=== PATIENT | female | born 1995 | race African-American/Black ===

== ENCOUNTER 2025-01-16 22:25 | Emergency (ER) | payer MEDICAID ==
[~2025-01-16] VITALS: Ht 152.4 cm; Wt 51.0 kg
[2025-01-16 22:27] VITALS: O2SAT 96
[2025-01-16 22:35] VITALS: BP 133/98; PULSE 108; RESP 18; TEMP 37; O2SAT 100
[2025-01-16] MEDS: IBUPROFEN 600MG TABLET PO ONE (23:21)
[2025-01-16 23:28] LABS: BASOPHILS % 0.4 % (0.0-2.0); EOSINOPHILS % 1.5 % (0.0-5.0); HEMATOCRIT. 37.8 % (36.0-48.0); HEMOGLOBIN. 12.6 g/dL (12.0-16.0); LYMPHOCYTES % 22.9 % (20.0-50.0); MEAN PLATELET VOLUME 8.4 fl (7.4-10.4); MONOCYTES % 7.1 % (2.0-8.0); NEUTROPHILS % 68.1 % (40.0-76.0); PLATELET 232 x1000/uL (130-400); RED BLOOD CELL COUNT 4.10 mill/uL (4.2-5.4); RED CELL DISTRIBUTION WIDTH 12.4 % (11.6-14.6)
[2025-01-16 23:42] LABS: CREATININE 1.0 mg/dL (0.6-1.0); UREA NITROGEN BLOOD 7 mg/dL (9-23)
[2025-01-16 23:44] LABS: ASPARTATE AMINOTRANSFERASE 20 IU/L (<34); BILIRUBIN DIRECT 0.1 mg/dL (<=3.0); BILIRUBIN TOTAL 0.5 mg/dL (0.1-1.0)
[2025-01-16 23:45] LABS: PROTEIN TOTAL 6.6 g/dL (6.0-8.3)
== END 2025-01-17 01:45 | disposition home or self-care (01) ==
LOC: ER 22:25
DX: R10.12 Left upper quadrant pain (principal); R19.7 Diarrhea, unspecified; Z98.890 Other specified postprocedural states
CPT/HCPCS: 36415; 80048; 80076; 85025; 99283

== ENCOUNTER 2025-01-29 19:11 | Emergency (ER) | payer MEDICAID ==
[~2025-01-29] VITALS: Ht 154.9 cm; Wt 57.0 kg
[2025-01-29 20:02] VITALS: O2SAT 98
[2025-01-29] MEDS: DEXAMETHASONE 1 MG/ML ORAL SYR PO ONE (21:45)
[2025-01-29] MEDS: SODIUM CHLORIDE 0.9% (SEPSIS BOLUS) IV ONE (22:56)
[2025-01-29] MEDS: KETOROLAC 15MG/ML VIAL IV ONE (22:56)
[2025-01-29] MEDS: DEXAMETHASONE 4MG TABLET PO SCH (22:57)
[2025-01-29] MEDS: VISCOUS LIDOCAINE 2% 15 ML UDC MM ONE (22:57)
[2025-01-29] MEDS: PIPERACILLIN/TAZO 3.375G/50ML 50 ML IV ONE (23:06)
[2025-01-29 23:13] LABS: HEMATOCRIT. 42.3 % (36.0-48.0); HEMOGLOBIN. 14.3 g/dL (12.0-16.0); MEAN PLATELET VOLUME 9.2 fl (7.4-10.4); PLATELET 222 x1000/uL (130-400); RED BLOOD CELL COUNT 4.71 mill/uL (4.2-5.4); RED CELL DISTRIBUTION WIDTH 12.5 % (11.6-14.6)
[2025-01-29 23:22] LABS: INR 1.0
[2025-01-29 23:24] LABS: HCG SCREEN NEGATIVE; LYMPHOCYTES % MANUAL 3.0 % (20.0-60.0); MONOCYTES % MANUAL 4.0 % (2.0-8.0); NEUTROPHILS % MANUAL 93.0 % (45.0-75.0); PLATELET ESTIMATE NORMAL
[2025-01-29 23:26] LABS: CREATININE 0.9 mg/dL (0.6-1.0); UREA NITROGEN BLOOD 8 mg/dL (9-23)
[2025-01-29 23:27] LABS: TROPONIN I HIGH SENSITIVITY < 4 ng/L (3.0-34)
[2025-01-29 23:28] LABS: ASPARTATE AMINOTRANSFERASE 19 IU/L (<34); BILIRUBIN DIRECT 0.2 mg/dL (<=3.0); BILIRUBIN TOTAL 0.8 mg/dL (0.1-1.0); PROTEIN TOTAL 8.2 g/dL (6.0-8.3)
[2025-01-29 23:30] LABS: CLARITY URINE CLOUDY (CLEAR); COLOR URINE YELLOW (YELLOW); GLUCOSE URINE NEGATIVE (NEGATIVE); KETONES URINE NEGATIVE (NEGATIVE); LEUKOCYTE ESTERASE URINE 2+ (NEGATIVE); NITRITE URINE NEGATIVE (NEGATIVE); OCCULT BLOOD URINE 1+ (NEGATIVE); PH URINE 5.5 (4.5-8.0); PROTEIN URINE TRACE (NEGATIVE); SPECIFIC GRAVITY URINE 1.014 (1.005-1.030); UROBILINOGEN URINE 2.0 E.U./dL (0.2-1.0)
[2025-01-29] MEDS: VANCOMYCIN 1G PREMIX 200 ML IV ONE (23:34)
[2025-01-30 00:01] LABS: SQUAMOUS EPITHELIAL CELL URINE 3+ /lpf (RARE/1+)
[2025-01-30 00:06] LABS: BACTERIA URINE 3+; RBC URINE 0-2 /hpf (0-2)
[2025-01-30 04:10] VITALS: BP 97/59; PULSE 96; RESP 17; TEMP 36.6; O2SAT 99
[2025-01-30 07:09] LABS: INFLUENZA TYPE A Presumptive Negative (Pres. Neg.)
[2025-01-30 07:10] LABS: INFLUENZA TYPE B Presumptive Negative (Pres. Neg.)
[2025-01-30 07:11] LABS: RESPIRATORY SYNCYTIAL VIRUS Not Detected (Not Detectd)
== END 2025-01-30 04:25 | disposition left against medical advice (07) ==
LOC: ER 19:27 → EDBEDREQ 01-30 00:17 → EDBEDREQDT 01-30 00:17 → EDBEDREQTM 01-30 00:17 → ER 01-30 04:25 → CMPBEDREQ 01-31 10:50
DX: A41.9 Sepsis, unspecified organism (principal); J02.9 Acute pharyngitis, unspecified; Z20.822 Contact with and (suspected) exposure to COVID-19; Z79.899 Other long term (current) drug therapy
CPT/HCPCS: 99291; 96365; 71045; 96367; 96366; 96375; 87426; 80076; 80048; 81003; 81025; 84703; 87430; 83880; 83605; 83735; 85025; 85610; 87420; 87040; 87086; 87186; 84484; 87804 ×2; 87077; 36415; 84145; 93005; 87070; 70490; J1885; J8540; J2543; J3373; J7030